=== PATIENT | female | born 1985 | race American Indian/Alaskan Native ===

== ENCOUNTER 2017-07-13 22:51 | Inpatient (IN) | payer MEDICAID ==
[2017-07-14] MEDS ORDERED: LACTATED RINGERS 1,000 ML ONE (00:38)
[2017-07-14] MEDS ORDERED: ePHEDrine SULFATE IV PRN ×2 (01:13→01:29)
[2017-07-14] MEDS ORDERED: ZOFRAN IV PRN ×2 (01:13→02:16)
[2017-07-14] MEDS ORDERED: MINERAL OIL PO PRN (01:13)
[2017-07-14] MEDS ORDERED: BRETHINE SUB-Q PRN ×2 (01:13→01:29)
[2017-07-14] MEDS ORDERED: SUBLIMAZE IV PRN (01:13)
[2017-07-14] MEDS ORDERED: XYLOCAINE 2% INFILTRATI ONE (01:13)
[2017-07-14] MEDS ORDERED: BRETHINE IVP PRN ×2 (01:13→01:29)
--- NOTE | 2017-07-14 01:29 | History and Physical Report ---
History of Present Illness Date of examination: 07/14/17 Date of admission: 07/14/17 01:14 Chief complaint: Painful contractions History of present illness: 32-year-old 002 at 39+3 weeks presents in active labor, she is a [employer] patient. course has been unremarkable, she is GBS negative. In triage, patient is now 8 cm with bulging membranes at -1 station Past History Past Medical History: no pertinent history Past Surgical History: no surgical history CAMPAIGN CONSULTANT History: denies: chlamydia, gonorrhea, hepatitis B, hepatitis C, herpes, HIV , syphilis, trichomonas Social history: single, smoking, full code. denies: alcohol abuse, prescription drug abuse, IV drug use - Obstetrical History Expected Date of Delivery: 07/17/17 Actual Gestation: 39 Week(s) 4 Day(s) : 4 Para: 2 Medications and Allergies Allergies Allergy/AdvReac Type Severity Reaction Status Date / Time No Known Allergies Allergy Unverified 07/13/17 23:36 Active Meds: Active Medications Fentanyl (Sublimaze) 100 mcg IV Q2H PRN PRN Reason: Labor Pain Lactated Ringer's (Lactated Ringers) 1,000 mls @ 125 mls/hr IV DIRECT MARZENA Oxytocin/Sodium Chloride (Pitocin/Ns 20 Unit/1000ml Drip) 20 units in 1,000 mls @ 125 mls/hr IV DIRECT MARZENA Mineral Oil (Mineral Oil) 30 ml PO QHS PRN PRN Reason: Constipation Ondansetron HCl (Zofran) 4 mg IV Q8H PRN PRN Reason: Nausea And Vomiting Review of Systems Constitutional: no weight gain, no fever, no chills, no sweats Cardiovascular: no chest pain, no orthopnea, no palpitations, no syncope, no lightheadedness, no shortness of breath, no dyspnea on exertion, no high blood pressure Respiratory: no cough, no excessive sputum, no shortness of breath, no dyspnea on exertion Gastrointestinal: abdominal pain, no nausea, no vomiting Genitourinary: contractions, no vaginal bleeding, no vaginal discharge, no leakage of fluid - Vital Signs Vital signs: Vital Signs Temp Pulse Resp BP 98.2 F 73 18 134/65 07/13/17 23:06 07/13/17 23:06 07/13/17 23:06 07/13/17 23:06 Temp Pulse Resp BP Pulse Ox 98.2 F 73 18 134/65 07/13/17 23:06 07/13/17 23:06 07/13/17 23:06 07/13/17 23:06 - Physical Exam Abdomen: Positive: normal appearance, soft. Negative: distention, tenderness, guarding, rigidity Genitourinary (Female): Positive: normal external genitalia Vagina: Positive: normal moisture. Negative: discharge Uterus: Positive: enlarged (EFW ~ 3600). Negative: tender Adnexa: both: normal Extremities: Positive: normal - Obstetrical FHR: category 1 Cervical Dilatation: 8 station: -1 Results All other labs normal. Assessment and Plan A: 32-year-old 002 at 39+ weeks in active labor -Cat 1 tracing P: -Admit -Routine labs -Epidural when necessary -Expectant management - Patient Problems (1) 39 weeks gestation of Current Visit: Yes Status: Acute (2) Active labor at term Current Visit: Yes Status: Acute
[2017-07-14 01:37] LABS: Hematocrit 35.4 % (30.3-42.9); Hemoglobin 11.8 gm/dl (10.1-14.3); Mean Corpuscular HGB Conc 33 % (30-34); Mean Corpuscular Hemoglobin 29 pg (28-32); Mean Corpuscular Volume 86 fl (79-97); Platelet Count 120 K/mm3 (140-440); Red Blood Count 4.12 M/mm3 (3.65-5.03); Red Cell Distribution Width 14.6 % (13.2-15.2); White Blood Count 12.2 K/mm3 (4.5-11.0)
[2017-07-14] MEDS ORDERED: PITOCin/NS 30 UNIT/500ML 30 UNITS/500 ML BAG IV SCH ×2 (02:00)
[2017-07-14] MEDS ORDERED: LACTATED RINGERS 1,000 ML IV SCH ×2 (02:00)
[2017-07-14] MEDS ORDERED: PITOCin/NS 20 UNIT/1000ML DRIP 20 UNITS/1,000 ML BAG IV SCH ×2 (02:00→03:00)
--- NOTE | 2017-07-14 02:15 | Procedure Note ---
OB Delivery Note - Delivery Date of Delivery: 07/14/17 Surgeon: MAYRA CALDERON Estimated blood loss: 100cc - Vaginal Delivery presentation: vertex Delivery position: OA Intrapartum events: precipitous labor- <3hr Delivery induction: none Delivery monitor: external FHT, external uterine Route of delivery: Delivery placenta: spontaneous Delivery cord: nuchal cord, 3 umbilical vessels Episiotomy: none Delivery laceration: none - A at 1 minute: 9 at 5 minutes: 9 Infant Gender: Female (time of delivery was 1:44 AM, infant weight 7 lbs. 11 oz. or 3481 g)
[2017-07-14] MEDS ORDERED: MILK OF MAGNESIA PO PRN (02:16)
[2017-07-14] MEDS ORDERED: TYLENOL PO PRN (02:16)
[2017-07-14] MEDS ORDERED: BENADRYL PO PRN (02:16)
[2017-07-14] MEDS ORDERED: TUCKS PAD TP PRN (02:16)
[2017-07-14] MEDS ORDERED: PHENERGAN PR PRN (02:16)
[2017-07-14] MEDS ORDERED: LANSINOH TP PRN (02:16)
[2017-07-14] MEDS ORDERED: PHENERGAN PO PRN (02:16)
[2017-07-14] MEDS ORDERED: DULCOLAX PR PRN (02:16)
[2017-07-14 02:51] LABS: Urine Drugs of Abuse Note Disclamer
[2017-07-14] MEDS ORDERED: SODIUM CHLORIDE FLUSH SYRINGE 10 ML IV NR (03:00)
[2017-07-14] MEDS: NORCO 5/325 PO PRN ×3 (04:23→23:34)
[2017-07-14] MEDS: MOTRIN PO SCH ×2 (08:18→18:48)
[2017-07-14] MEDS: PRENATAL VITAMIN PO SCH (13:12)
[2017-07-14] MEDS: FEOSOL PO SCH ×2 (13:12→22:02)
[2017-07-14 13:34] LABS: Hematocrit 32.5 % (30.3-42.9); Hemoglobin 10.7 gm/dl (10.1-14.3)
[2017-07-14] MEDS: SENOKOT S PO SCH (22:03)
[2017-07-14] MEDS: COLACE PO SCH (22:03)
[2017-07-15] MEDS: MOTRIN PO SCH ×4 (01:32→19:06)
[2017-07-15] MEDS ORDERED: BOOSTRIX IM ONE (06:00)
--- NOTE | 2017-07-15 10:04 | Progress Note ---
Assessment and Plan A: PP Day #1 Stable P: Follow Routine Orders Depo Provera prior to discharge D/C home in the AM RTO in 6 Weeks Subjective - Subjective Date of service: 07/15/17 Patient reports: appetite normal, voiding normally, pain well controlled, flatus , ambulating normally [place]: doing well, bottle feeding Objective - Vital Signs Latest vital signs: Vital Signs Temp Pulse Resp BP 07/15/17 08:26 98.3 F 80 18 110/60 07/14/17 23:34 20 07/14/17 16:35 98.3 F 62 18 115/66 07/14/17 12:20 98.0 F 61 18 135/73 Intake and Output 07/14/17 07/15/17 07/15/17 22:59 06:59 14:59 Intake Total 360 360 Output Total 300 Balance 60 360 Intake: Oral 360 Intake, Free Water 360 Output: Urine 300 Void 300 Other: Total, Intake Amount 360 Total, Output Amount 300 # Voids Void 1 2 1 - Exam Breasts: Present: normal Cardiovascular: Present: Regular rate Lungs: Present: Clear to auscultation, Normal air movement Abdomen: Present: normal appearance, soft, normal bowel sounds Uterus: Present: normal, firm, fundal height below umbilicus Extremities: Present: normal
--- NOTE | 2017-07-15 10:06 | Discharge Summary ---
Providers - Providers Date of Admission: 07/14/17 01:14 Date of discharge: 07/16/17 Attending physician: FRANCINE DELEON MD 07/14/17 06:13 Consult to Case Management [CONS] Routine Services Needed at Discharge: S[employer]uder Notified:: Padma Newtonopold Phone number called:: [phone] Was contact made?: Yes If yes, spoke with:: left message on machine Time called:: 06:14 Comment:: regarding adoption Primary care physician: FRANCINE DELEON MD Hospitalization Reason for admission: active labor Delivery: Episiotomy: none Laceration: none Other procedures: none complications: none Discharge diagnosis: IUP at term delivered baby: female Condition at discharge: Good Disposition: DC-01 TO HOME OR SELFCARE Plan - Discharge Medications Prescriptions: HYDROcodone/APAP 5-325 [[place]lass 5/325] 1 each PO Q6HR PRN #7 tablet PRN Reason: Pain Ibuprofen [Motrin 600 MG tab] 600 mg PO Q8H PRN #30 tablet PRN Reason: Pain Multivitamin with Iron [Multivitamins with Iron] 1 each PO DAILY #30 tablet - Provider Discharge Summary Activity: routine, no sex for 6 weeks, no heavy lifting 4 weeks, no strenuous exercise Diet: routine Instructions: routine Additional instructions: [] Smoking cessation referral if applicable(refer to patient education folder for contact #) [] Refer to [facility] Booklet Call your doctor immediately for: * Fever > 100.5 * Heavy vaginal bleeding ( >1 pad per hour) * Severe persistent headache * Shortness of breath * Reddened, hot, painful area to leg or breast * Drainage or odor from incision. * Keep incision clean and dry at all times and follow doctor's instructions regarding bathing/showering - Follow up plan Follow up: MARISOL HACKETT CNM [Advanced Practice Nurse] - 6 Weeks
[2017-07-15] MEDS ORDERED: DEPO-PROVERA (CONTRACEPTION) IM NR (10:30)
[2017-07-15] MEDS: PRENATAL VITAMIN PO SCH (12:50)
[2017-07-15] MEDS: FEOSOL PO SCH ×2 (12:50→22:13)
[2017-07-15] MEDS: COLACE PO SCH (22:14)
[2017-07-16] MEDS: NORCO 5/325 PO PRN ×2 (00:14→05:39)
[2017-07-16] MEDS: MOTRIN PO SCH ×2 (05:38)
[2017-07-16] MEDS: COLACE PO SCH (11:17)
[2017-07-16] MEDS: FEOSOL PO SCH (11:17)
[2017-07-16] MEDS: PRENATAL VITAMIN PO SCH (11:17)
[2017-07-16] MEDS: SENOKOT S PO SCH (11:19)
[2017-07-16 14:06] VITALS: BP 136/66
== END 2017-07-16 17:35 | disposition home or self-care (01) | DRG 775 ==
LOC: TRG 22:51 → LD 07-14 01:14 → EEVIPCON 07-14 01:14 → LD 07-14 01:39 → OB 07-14 03:40
PROVIDERS: ADMIT Obstetrics & Gynecology; ATTEND Obstetrics & Gynecology
PROC: 10E0XZZ Delivery of Products of Conception, External Approach (ICD-10-PCS; principal; 2017-07-14)
DX: O62.3 Precipitate labor (principal); O69.81X0 Labor and delivery complicated by cord around neck, without compression, not applicable or unspecified; O99.334 Smoking (tobacco) complicating childbirth; F17.200 Nicotine dependence, unspecified, uncomplicated; Z3A.39 39 weeks gestation of pregnancy; Z37.0 Single live birth
CPT/HCPCS: 36415; 80307; 85014; 85018; 85027; 86592; 86850; 86900; 86901; J2590; J3010; J7120